=== PATIENT | female | born 1985 | race Caucasian/White ===

== ENCOUNTER 2018-05-22 06:27 | Day surgery (SDC) ==
[2018-05-21 17:08] LABS: URINE SOURCE VOIDED
[2018-05-21 17:25] LABS: BILIRUBIN URINE NEGATIVE (NEGATIVE); BLOOD URINE NEGATIVE (NEGATIVE); COLOR YELLOW; GLUCOSE URINE NEGATIVE (NEGATIVE); KETONE URINE NEGATIVE (NEGATIVE); LEUKOCYTES URINE MODERATE (NEGATIVE); NITRITE URINE NEGATIVE (NEGATIVE); PROTEIN URINE 50 mg/dL (NEGATIVE); TURBIDITY URINE HAZY (CLEAR); UROBILINOGEN URINE 2 mg/dL (NORMAL)
[2018-05-21 17:26] LABS: BASO# 0.06 X1000 (0.0-0.2); BASO% 0.3 % (0.0-0.8); EOS# 0.55 X1000 (0.0-0.7); EOS% 2.4 % (0.0-10.0); HEMATOCRIT 36.9 % (37.0-47.0); HEMOGLOBIN 11.7 g/dL (12.0-16.0); IMM GRAN# 0.12 X1000 (0.0-0.04); IMM GRAN% 0.5 % (0.0-0.5); LYMPH% 14.2 % (20.5-51.1); MCH 28.7 PG (27-31); MCHC 31.7 g/dL (33-37); MCV 90.7 FL (81-99); MONO# 1.36 X1000 (0.11-0.59); MPV 10.3 FL (7.4-10.4); NEUT# 17.28 X1000 (1.4-6.5); NEUT% 76.6 % (42.2-75.2); PLT 547 X1000 (130-400); RBC 4.07 XMIL (4.2-5.4); RDW 12.5 % (11.5-14.5); WBC 22.57 X1000 (4.8-10.8)
[2018-05-21 17:34] LABS: UR EPITHELIAL CELLS >10 /HPF (<10); URINE BACTERIA 2+ /HPF; URINE RBC <10 /HPF (<10); URINE WBC 20-40 /HPF (<10)
[2018-05-21 17:40] LABS: AGAP 13; ALB/GLOB RATIO 0.7; ALBUMIN 3.2 g/dL (3.5-5.0); ALKALINE PHOSPHATASE 179 U/L (32-104); BUN 15 mg/dL (8-22); CALCIUM 8.5 mg/dL (8.8-10.2); CHLORIDE 101 mmol/L (98-107); COSMO 270; CREATININE 0.5 mg/dL (0.5-0.9); ESTIMATED GFR > 60; GLUCOSE 87 mg/dL (70-104); GOT 14 U/L (10-30); GPT 20 U/L (10-36); POTASSIUM 3.9 mmol/L (3.5-5.1); SODIUM 135 mmol/L (136-145); TCO2 21 mmol/L (25-35); TOTAL BILIRUBIN 0.32 mg/dL (0.20-1.00); TOTAL PROTEIN 7.6 g/dL (6.3-8.3)
[2018-05-21 17:46] LABS: URINE CASTS NONE SEEN; URINE YEAST NONE SEEN
[2018-05-21 17:47] LABS: URINE CRYSTALS NONE SEEN
[2018-05-21 17:56] LABS: BANDS 2 % (0-1); EOS 2 % (1-10); LYMPHS 12 % (21-51); MONO 3 % (1-9); SEGS 81 % (42-75)
--- NOTE | 2018-05-21 19:16 | Diag Imaging Result Doc PS360 ---
EXAM: CHEST-2 VIEWS INDICATION: PRE OP TECHNIQUE: 2 views COMPARISON: 05/09/2010 FINDINGS: The lungs are grossly clear. There is no discrete pleural fluid collection or pneumothorax. The cardiomediastinal silhouette and central vasculature are grossly unremarkable. IMPRESSION: No evidence of acute pathology by plain radiograph. Electronically signed by Jono Bolaños 05/21/2018 7:14 PM
--- NOTE | 2018-05-22 06:38 | EKG Report ---
Test Performed on : 05/21/2018 4:52:56 PM Test Reason : PRE-OP/ I D RT BREAST Blood Pressure : / mmHG Vent. Rate : 082 BPM Atrial Rate : 082 BPM P-R Int : 178 ms QRS Dur : 074 ms QT Int : 378 ms P-R-T Axes : 055 072 047 degrees QTc Int : 441 ms Normal sinus rhythm. Possible Left atrial enlargement Borderline ECG No previous ECGs available Unconfirmed Result
[2018-05-22] MEDS ORDERED: LR 1,000 ML ONE (06:59)
[2018-05-22] MEDS ORDERED: KEFZOL 1 GM/D5W 1 GM/50 ML IVPB ONE (06:59)
[2018-05-22] MEDS ORDERED: DIPRIVAN 1% ONE (07:49)
[2018-05-22] MEDS ORDERED: XYLOCAINE-MPF 2% ONE (07:53)
[2018-05-22] MEDS ORDERED: ZOFRAN ONE (08:02)
[2018-05-22] MEDS ORDERED: VERSED ONE (08:04)
[2018-05-22] MEDS ORDERED: HYDROGEN PEROXIDE SOLUTION ONE (08:17)
[2018-05-22] MEDS ORDERED: FENTANYL ONE (08:28)
[2018-05-22] MEDS ORDERED: DEMEROL ONE ×3 (09:10→09:45)
--- NOTE | 2018-05-22 09:39 | OPERATIVE NOTE ---
PROCEDURE DATE: 05/22/2018 DIAGNOSIS: Large right breast abscess in a nursing mama. PROCEDURE: Incision and drainage. DESCRIPTION OF PROCEDURE IN DETAIL: The patient is brought to the operating room. After satisfactory induction of IV and LMA anesthesia, her right breast was prepped and draped in the appropriate manner. The abscess was largely confined to the upper inner quadrant. It was 11 x 11 x 6 cm. A lower inner periareolar incision was taken sharply down through skin and subcutaneous tissue. Hemostat was used to burst into the abscess with decompression of a large amount of purulent milk. Anaerobic and aerobic cultures were obtained. Approximately 300 mL was aspirated away. A 10 Edilberto-Bryant drain was threaded up through the incision into the pocket and hooked to suction. The wound was irrigated at one point with peroxide. The sterile dressing was applied. The patient was awakened and extubated in the operating room and transferred to recovery. Estimated blood loss was about 20 mL. cc: Alvaro Taylor MD
[2018-05-22] MEDS ORDERED: D5 1/2 NS 1,000 ML ONE (09:41)
[2018-05-22] MEDS ORDERED: ZOFRAN IV PRN (10:15)
[2018-05-22] MEDS ORDERED: ZOFRAN PO PRN (10:15)
[2018-05-22] MEDS ORDERED: NORCO-5 PO PRN (10:15)
[2018-05-22] MEDS ORDERED: D5 1/2 NS 1,000 ML IV SCH (11:00)
[2018-05-22] MEDS: MORPHINE IV PRN ×2 (14:00→21:33)
[2018-05-22] MEDS ORDERED: VANCOMYCIN IV PER PHARMACY MISC SCH (14:00)
--- NOTE | 2018-05-22 14:44 | INFECTIOUS DISEASE CONSULT REP ---
DATE: 05/22/2018 CONCLUSION: Patient is status post incision and drainage of a large right breast abscess performed by Dr. Taylor. RECOMMENDATION: I have discontinued cefazolin and have placed the patient on vancomycin pending culture results. DISCUSSION: The patient approximately 6 weeks ago started to develop right breast erythema and swelling. She underwent surgery today, and Dr. Taylor operative report says that the abscess was 11 x 11 x 6 cm and had 300 mL of fluid in it, which was drained out. LABORATORY STUDIES: CBC with a white count of 22,570, hemoglobin 11.7, and platelet count 547,000. Creatinine is 0.5. GFR is greater than 60. Alkaline phosphatase is 179. test was negative. Cultures from the right breast and urine are pending. Urinalysis showed white cells and bacteria. PAST MEDICAL HISTORY/REVIEW OF SYSTEMS: Eyes and ears: The patient does not have a problem seeing or hearing. Neck: No stiffness. Respiratory: No cough or shortness of breath. Cardiac: No chest pain or palpitations. : No dysuria or flank pain. GI: No nausea, vomiting, or diarrhea. Bones/joints/muscles: No swollen joints or muscle aches. Neurologic: No seizures. No recent loss of motor or sensory function. Integument: No rashes. 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 She delivered one of her children by C- section. The other was delivered vaginally. PREVIOUS HOSPITALIZATIONS AND OPERATIONS: Patient has had 2 labor and deliveries and 1 . She had surgery and lithotripsy for renal calculi. MEDICAL DISEASES: Positive for renal calculi. Negative for diabetes. INFECTIOUS DISEASE HISTORY: Positive for urinary tract infection. Negative for pneumonia. FAMILY HISTORY: Positive for diabetes mellitus, hypertension and myocardial infarction. SOCIAL HISTORY: [place] . She has dogs for a pet. She is at home. The patient has a job as a auto transport driver. The patient stopped smoking cigarettes in March of this year. She does not drink or abuse drugs. ALLERGIES: She is allergic to penicillin. It causes hives, but she has had Keflex in the past and tolerated it well. PHYSICAL EXAMINATION: Vital Signs: Temperature is 98.8 degrees, pulse 61, respirations 16, blood pressure 109/67. Patient is 163 pounds. General: This is a healthy-appearing young female. She is in no acute distress. Head/eyes/ears/nose/throat: She can hear my spoken words and see near objects. She does not have any white patches on her tongue. Neck: No meningismus. Lungs: Clear to auscultation. Cardiovascular: Heart rate is regular. Breasts: The patient has a large dressing on her right breast. Abdomen: Soft and nontender. Neurologic: The patient is alert. She can move her extremities. There is no tremor. Her sensation is intact to touch. Her memory as regarding her medical history is intact. Integument: No rash was noted. Thank you for the consult. cc: MD Alvaro Guillermo MD
[2018-05-22] MEDS ORDERED: VANCOMYCIN 2,200 MG in NS 500 ML IV ONE (15:00)
[2018-05-22] MEDS ORDERED: KEFZOL 1 GM/D5W 1 GM/50 ML IVPB IV SCH (16:00)
[2018-05-22] MEDS ORDERED: BENADRYL PO PRN (17:50)
[2018-05-22] MEDS: PERIDEX MT SCH (21:32)
[2018-05-23] MEDS ORDERED: VANCOMYCIN 1,650 MG in NS 250 ML IV SCH (03:00)
[2018-05-23 07:33] VITALS: BP 107/56
[2018-05-23] MEDS: PERIDEX MT SCH (08:31)
== END 2018-05-23 13:24 | disposition home or self-care (01) ==
LOC: OR 06:27 → DIRADM 06:27 → OPS 06:27 → 4N 10:09 → OR 05-23 13:24
PROVIDERS: ATTEND Surgery
CPT/HCPCS: 71020; 71046; 80053; 81001; 81025; 85025; 87070; 87075; 87077; 87088; 87186; 93005; 93010; A9270; J0690; J2175; J2250; J2270; J2405; J3010; J3370; J7040; J7120